=== PATIENT | male | born 1965 | race Hispanic/Latino ===

== ENCOUNTER 2022-10-14 20:58 | Emergency (ER) | payer SELFPAY ==
[~2022-10-14] VITALS: Ht 182.9 cm; Wt 117.9 kg
[2022-10-14] MEDS ORDERED: DOXYCYCLINE HY100 MG PO (23:39)
[2022-10-14] MEDS ORDERED: BENZONATATE200 MG PO (23:39)
[2022-10-16] MEDS ORDERED: PROVENTIL HFA6.7 GM INH (21:51)
== END 2022-10-15 00:10 | disposition home or self-care (01) ==
LOC: ER 21:08
DX: R05.9 Cough, unspecified (principal); J18.9 Pneumonia, unspecified organism; I10 Essential (primary) hypertension; E11.9 Type 2 diabetes mellitus without complications; E03.9 Hypothyroidism, unspecified; Z20.822 Contact with and (suspected) exposure to COVID-19
CPT/HCPCS: 71046; 99283; U0002

== ENCOUNTER 2022-10-16 21:38 | Emergency (ER) | payer OTHER ==
[~2022-10-16] VITALS: Ht 182.9 cm; Wt 117.9 kg
[~2022-10-16 21:38] MED LIST: BENZONATATE200 MG PO; DOXYCYCLINE HY100 MG PO
[2022-10-16] MEDS ORDERED: PROVENTIL HFA6.7 GM INH (21:51)
[2022-10-16 21:59] VITALS: BP 138/92
== END 2022-10-16 21:57 | disposition home or self-care (01) ==
LOC: ER 21:43
DX: R50.9 Fever, unspecified (principal); J18.9 Pneumonia, unspecified organism; R05.9 Cough, unspecified; I10 Essential (primary) hypertension; E11.9 Type 2 diabetes mellitus without complications; E03.9 Hypothyroidism, unspecified
CPT/HCPCS: 99282

== ENCOUNTER 2024-04-13 07:49 | Observation (INO) | payer OTHER ==
[2024-04-10 10:19] LABS: BASOPHILS # (AUTO) 0.1 (0.0-0.1); BASOPHILS % 0.7 % (0.0-1.0); EOSINOPHILS # (AUTO) 0.3 (0.0-0.4); EOSINOPHILS % 3.7 % (0.0-6.0); HEMATOCRIT 51.2 % (38.2-49.6); HEMOGLOBIN 17.4 g/dL (14.0-18.0); LYMPHOCYTES # (AUTO) 1.9 (1.0-3.2); LYMPHOCYTES % 26.5 % (18.0-39.1); MEAN CORPUSCULAR VOLUME 91.3 fL (81-99); MONOCYTES # (AUTO) 0.6 (0.2-0.8); MONOCYTES % 7.9 % (4.4-11.3); NEUTROPHILS # (AUTO) 4.4 (2.1-6.9); NEUTROPHILS % 60.9 % (38.7-80.0); PLATELET COUNT 200 x10e3/uL (140-360); RED BLOOD COUNT 5.61 x10e6/uL (4.3-5.7); RED CELL DISTRIBUTION WIDTH 13.2 % (11.7-14.4); WHITE BLOOD COUNT 7.22 x10e3/uL (4.8-10.8)
[2024-04-10 10:44] LABS: ANION GAP 15.2 mmol/L (8-16); CALCIUM 9.3 mg/dL (8.4-10.2); CREATININE, SERUM 1.43 mg/dL (0.72-1.25); POTASSIUM 4.2 mmol/L (3.5-5.1)
[2024-04-13] MEDS: CELECOXIB 200 MG CAP ONE (07:46)
[2024-04-13] MEDS: DEXAMETHASONE SOD PHOS 10 MG/1 ML VIAL ONE (07:47)
[2024-04-13] MEDS: CEFAZOLIN SODIUM 2 GM ONE (07:47)
[2024-04-13] MEDS: GABAPENTIN 300 MG CAP ONE (07:47)
[2024-04-13] MEDS: LACTATED RINGER'S 1,000 ML ONE (07:48)
[~2024-04-13 07:49] MED LIST changes: +ATORVASTATIN CA20 MG PO; +HUMULIN 70100 UNIT/1 SC; +LOSARTAN POTAS100 MG PO; +METOPROLOL SUCC25 MG PO; +PROVENTIL HFA6.7 GM INH
[2024-04-13] MEDS ORDERED: Vancomycin IV 500 MG ONE (09:38)
[2024-04-13] MEDS ORDERED: SODIUM CHLORIDE 0.9% 500ML 500 ML ONE (09:38)
[2024-04-13] MEDS ORDERED: TRANEXAMIC ACID 20 ML ONE (09:38)
[2024-04-13] MEDS ORDERED: DIPHENHYDRAMINE HCL INJ 50 MG/ML VIAL IV PRN (10:45)
[2024-04-13] MEDS ORDERED: HYDROCODONE/APAP 5MG-325MG TAB PO PRN (10:45)
[2024-04-13] MEDS ORDERED: ONDANSETRON HCL INJ 2MG/ML 2ML 2 MG/ML VIAL IV PRN (10:45)
[2024-04-13] MEDS ORDERED: DOCUSATE SODIUM 100 MG CAP PO PRN (10:45)
[2024-04-13] MEDS ORDERED: SODIUM CHLORIDE 0.9% 1000ML 1,000 ML IV SCH (10:45)
[2024-04-13] MEDS ORDERED: HYDROCODONE/APAP 7.5MG-325MG 1 EA TAB PO PRN (10:45)
[2024-04-13 10:52] VITALS: TEMP 98.8
[2024-04-13] MEDS: HYDROCODONE/APAP 7.5MG-325MG 1 EA TAB PO ONE ×2 (11:38→14:32)
[2024-04-13] MEDS ORDERED: HYDROCODONE/APAP 7.5MG-325MG 1 EA TAB ONE ×2 (11:39→14:36)
[2024-04-13] MEDS ORDERED: ONDANSETRON HCL INJ 2MG/ML 2ML 2 MG/ML VIAL ONE (12:42)
[2024-04-13] MEDS ORDERED: EPHEDRINE SULFATE INJ 50 MG/ML VIAL ONE (12:42)
[2024-04-13] MEDS ORDERED: DEXAMETHASONE SOD PHOS INJ 4 MG/ML SDV ONE (12:42)
[2024-04-13] MEDS ORDERED: LABETALOL HCL 5 MG/ML 20ML VIAL ONE (12:42)
[2024-04-13] MEDS ORDERED: SEVOFLURANE INHAL SOLN 250 ML PEN BTL ONE (12:42)
[2024-04-13] MEDS ORDERED: LIDOCAINE HCL 2% LOCAL INJ 5 ML SDV VIAL INJ ONE (12:42)
[2024-04-13] MEDS ORDERED: PROPOFOL IV EMULSION 10 MG/ML 20 ML VIAL ONE (12:42)
[2024-04-13] MEDS ORDERED: ASPIRIN81 MG PO (13:03)
[2024-04-13] MEDS ORDERED: EPINEPHRINE HCL 1:1000 1ML 1 MG/ML AMP ONE (13:41)
[2024-04-13] MEDS ORDERED: ROPIVACAINE 0.5% 5 MG/ML 30 ML SDV ONE (13:41)
[2024-04-13] MEDS: ROPIVACAINE 246.25 MG, EPINEPHRINE HCL 1:1000 1ML 0.5 MG, CLONIDINE HCL 0.08 MG, KETORO... INJ ONE (13:44)
[2024-04-13 15:00] VITALS: BP 128/87; PULSE 72; RESP 17; O2SAT 97
[2024-04-13] MEDS ORDERED: ASPIRIN 325 MG TAB PO SCH (17:00)
[2024-04-13] MEDS ORDERED: CELECOXIB 100 MG CAP PO SCH (17:00)
[2024-04-13] MEDS ORDERED: FENTANYL CITRATE/PF 100MCG/2 ML INJ ONE ×2 (17:47→17:49)
[2024-04-13] MEDS ORDERED: MIDAZOLAM HCL 2 MG/2 ML VIAL ONE (17:49)
[2024-04-14] MEDS ORDERED: ACETAMINOPHEN 1000 MG/100 ML IV PRN (10:45)
== END 2024-04-13 15:20 | disposition home health service (06) ==
LOC: OR 07:49 → PACU V 11:24
PROVIDERS: ADMIT Specialist; ATTEND Specialist
DX: M17.11 Unilateral primary osteoarthritis, right knee (principal); I10 Essential (primary) hypertension; E78.5 Hyperlipidemia, unspecified; E11.9 Type 2 diabetes mellitus without complications; Z79.4 Long term (current) use of insulin; E07.9 Disorder of thyroid, unspecified; E66.01 Morbid (severe) obesity due to excess calories; Z68.33 Body mass index [BMI] 33.0-33.9, adult; Z71.3 Dietary counseling and surveillance; Z01.810 Encounter for preprocedural cardiovascular examination; Z01.812 Encounter for preprocedural laboratory examination; Z79.899 Other long term (current) drug therapy
CPT/HCPCS: 27447; 36415; 73560; 80048; 85025; 86850; 86900; 93005; 97116 ×2; 97161; 97530; C1713 ×3; C1776 ×3; G0378; J0171; J0690; J1100 ×2; J1885; J2001; J2250; J2405; J2704; J2795; J3010; J3370; J3490; J7040; J7121

== ENCOUNTER 2024-05-29 10:00 | Outpatient (RCR) | payer OTHER ==
[~2024-05-29 10:00] MED LIST changes: +ASPIRIN81 MG PO
== END 2024-05-30 ==
LOC: PT 10:00
PROVIDERS: ATTEND Specialist
DX: Z47.1 Aftercare following joint replacement surgery (principal); Z96.651 Presence of right artificial knee joint; M25.561 Pain in right knee; M62.81 Muscle weakness (generalized); M25.661 Stiffness of right knee, not elsewhere classified

== ENCOUNTER → 2024-06-29 | Outpatient (RCR) | payer OTHER | LOC: PT 06-02 08:53 | PROVIDERS: ATTEND Specialist | DX: Z47.1 Aftercare following joint replacement surgery (principal); Z96.651 Presence of right artificial knee joint; M25.561 Pain in right knee; M25.661 Stiffness of right knee, not elsewhere classified; M62.81 Muscle weakness (generalized) ==

== ENCOUNTER 2024-07-24 09:00 | Outpatient (RCR) | payer OTHER | END 2024-07-30 | LOC: PT 09:00 | PROVIDERS: ATTEND Specialist | DX: Z47.1 Aftercare following joint replacement surgery (principal); Z96.651 Presence of right artificial knee joint; M25.561 Pain in right knee; M25.661 Stiffness of right knee, not elsewhere classified; M62.81 Muscle weakness (generalized) ==